=== PATIENT | female | born 1990 | race Two or more races ===

== ENCOUNTER 2024-12-16 08:50 | Observation (INO) | payer MEDICAID ==
[2024-12-16] MEDS ORDERED: PREN-129 OR (09:28)
[2024-12-16] MEDS ORDERED: METF-370 PO (09:28)
--- NOTE | 2024-12-16 09:51 | DVH ---
BIOPHYSICAL PROFILE HISTORY: GDMA2 TECHNIQUE: Multiple real-time grayscale sonographic images through the gravid uterus of the fetus wi th duplex Doppler color flow. FINDINGS: BIOPHYSICAL PROFILE: breathing score: 2 movement score: 2 tone score: 2 Quantitative NING score: 2 Total score: 8 out of 8 Single live fetus in cephalic presentation. heart rate 147 beats per minute. heart rate of 147 beats per minute. Placenta is positioned anteriorly. IMPRESSION: 1. Biophysical profile score: 8 out of 8
--- NOTE | 2024-12-16 10:51 | DVHDS2 ---
Physician Discharge Progress N Final Diagnosis: polyhydramnia,gdm Operations or Procedures: Operations or Procedures nst,sono Condition on Discharge: Good Disposition: Home Discharge Instructions: Diet: Consistent carbohydrate Activity: No Restrictions, As Tolerated Medications: na Follow Up Care: Specialist: 4d Discharge Statement: "Patient was advised to return to the ER or call 911 if any headaches, dizziness, shortness of breath, chest pain, abdominal pain, bleeding, fevers, or worsening of medical condition. Patient was counseled about treatment plan, medications, possible side effects, patientverbalized understanding. All questions were answered to the best of my ability. This discharge took greater then 30 minutes in planning, reviewing doc umentation, counseling the patient, and discussing with other team members." Visit Coding OBGYN Date of Service: Dec 16, 2024 Billing Provider: DONNIE REYES DO MEAT STOCK CLERK Common Visit Codes: [id number] INP/OBS CARE (HIGH) MEAT STOCK CLERK Procedure Codes: 78224-43- NON-STRESS TEST DONNIE REYES DO Dec 16, 2024 10:51
== END 2024-12-16 10:22 | disposition home or self-care (01) ==
LOC: LDRP 08:50
PROVIDERS: ADMIT Obstetrics & Gynecology; ATTEND Obstetrics & Gynecology
DX: O24.419 Gestational diabetes mellitus in pregnancy, unspecified control (principal); O40.3XX0 Polyhydramnios, third trimester, not applicable or unspecified; Z3A.32 32 weeks gestation of pregnancy; Z79.899 Other long term (current) drug therapy
CPT/HCPCS: 59025; 76819; 81002; 82948; 82962; 94760; G0378

== ENCOUNTER 2024-12-21 08:07 | Observation (INO) | payer MEDICAID ==
[~2024-12-21 08:07] MED LIST: METF-370 PO; PREN-129 OR
--- NOTE | 2024-12-21 09:36 | DVH ---
Procedure: US BIOPHYSICAL PROFILE 12/21/2024 08:54 AM Indication: GDMA2 Comparison: US BIOPHYSICAL PROFILE on DOS: 12/16/24 Technique: Sonogram of gravid uterus utilizing grayscale and color techniques. FINDINGS: Single living intrauterine gestation. Presentation: Cephalic Placenta: Anterior heart rate: 155 bpm NING: 11.2 cm, DVP: 4.9 cm Maternal cervix: Not visualized Biophysical Profile: breathing score: 2 movement score: 2 tone: 2 Quantitative NING score: 2 Total score: 8/8 IMPRESSION: 1. Single living as above. 2. Biophysical profile score: 8/8.
--- NOTE | 2024-12-21 17:08 | DVHDS2 ---
Physician Discharge Progress N Final Diagnosis: gdma2,accreta Operations or Procedures: Operations or Procedures nst,sono Other Interventions Other Interventions [facility] Condition on Discharge: Good Disposition: Home Discharge Instructions: Diet: Consistent carbohydrate Activity: No Restrictions, As Tolerated Medications: na Follow Up Care: Specialist: 4d Discharge Statement: "Patient was advised to return to the ER or call 911 if any headaches, dizziness, shortness of breath, chest pain, abdominal pain, bleeding, fevers, or worsening of medical condition. Patient was counseled about treatment plan, medications, possible side effects, patientverbalized understanding. All questions were answered to the best of my ability. This discharge took greater then 30 minutes in planning, reviewing documentation, counseling the patient, and discussing with other team members." Visit Coding OBGYN Date of Service: Dec 21, 2024 Billing Provider: DONNIE REYES DO MORTGAGE CONSULTANT Common Visit Codes: [id number] INP/OBS CARE (HIGH) MORTGAGE CONSULTANT Procedure Codes: 60701-36- NON-STRESS TEST DONNIE REYES DO Dec 21, 2024 17:08
== END 2024-12-21 10:00 | disposition home or self-care (01) ==
LOC: LDRP 08:07
PROVIDERS: ADMIT Obstetrics & Gynecology; ATTEND Obstetrics & Gynecology
DX: O24.419 Gestational diabetes mellitus in pregnancy, unspecified control (principal); O43.213 Placenta accreta, third trimester; Z98.890 Other specified postprocedural states; Z79.899 Other long term (current) drug therapy; Z3A.33 33 weeks gestation of pregnancy
CPT/HCPCS: 59025; 76819; 81002; 82948; 82962; 94760; G0378

== ENCOUNTER 2024-12-25 06:55 | Observation (INO) | payer MEDICAID ==
--- NOTE | 2024-12-25 10:40 | DVH ---
BIOPHYSICAL PROFILE HISTORY: gdma2 TECHNIQUE: Multiple transabdominal real-time grayscale sonographic images through the gravid uterus of the fetus with duplex Doppler color flow and M-mode spectral analysis FINDINGS: BIOPHYSICAL PROFILE: breathing score: 2 movement score: 2 tone score: 2 Quantitative NING score: 2 (NING: 13.2 Cm.) Total score: 8 The cervix not well visualized Single live fetus in cephalic presentation. heart rate 141 beats per minute. Anterior placenta without previa or abruption IMPRESSION: Biophysical profile score: 8
--- NOTE | 2024-12-25 23:01 | DVHDS2 ---
Discharge Summary Date of Admission Dec 25, 2024 at 09:16 Date of Discharge: Dec 25, 2024 Admitting Diagnosis 33 GDM A2 Labs/Diagnostic Data: Laboratory Results Test 12/25/24 09:39 POC Glucose 112 mg/dl (70-106) Brief Hx & Hospital Course: NST US Condition at Discharge: Good Final Diagnosis/Problems List same Discharge Disposition: Home Discharge Instruct/Medications Diet: Consistent carbohydrate Activity: No Restrictions, As Tolerated Follow Up/Referral: As scheduled kick counts labor precautions Discharge Statement: "Patient was advised to return to the ER or call 911 if any headaches, dizziness, shortness of breath, chest pain, abdominal pain, bleeding, fevers, or worsening of medical condition. Patient was counseled about treatment plan, medications, possible side effects, patientverbalized understanding. All questions were answered to the best of my ability. This discharge took greater then 30 minutes in planning, reviewing documentation, counseling the patient, and discussing with other team members." ASSESSMENT ASSESSMENT Assessment Visit Coding OBGYN Date of Service: Dec 25, 2024 Billing Provider: MILAD SOLIMAN DO SOCIAL SERVICES SPECIALIST Common Visit Codes: 46881-VJY/OBS SAME DATE (LOW), 27687-MFZ/OBS SAME DATE (MOD), 70745-FDA/OBS SAME DATE (HIGH) SOCIAL SERVICES SPECIALIST Procedure Codes: 75668-66- NON-STRESS TEST MILAD SOLIMAN DO Dec 25, 2024 23:01
== END 2024-12-25 10:51 | disposition home or self-care (01) ==
LOC: UNDOADMOB 08:35 → LDRP 08:35 → UNDODISOB 10:51
PROVIDERS: ADMIT Obstetrics & Gynecology; ATTEND Obstetrics & Gynecology
DX: O24.419 Gestational diabetes mellitus in pregnancy, unspecified control (principal); Z98.890 Other specified postprocedural states; Z79.899 Other long term (current) drug therapy; Z3A.33 33 weeks gestation of pregnancy
CPT/HCPCS: 59025; 76819; 81002; 82948; 82962; 94760; G0378

== ENCOUNTER 2024-12-29 06:27 | Observation (INO) | payer MEDICAID ==
--- NOTE | 2024-12-31 10:19 | DVH ---
CLINICAL HISTORY: Gestational diabetes. COMPARISON: US BIOPHYSICAL PROFILE on DOS: 12/25/24, US BIOPHYSICAL PROFILE on DOS: 12/21/24, US BIOPHY SICAL PROFILE on DOS: 12/16/24 TECHNIQUE: biophysical profile was performed. Transabdominal sonographic images of the fetus we re obtained. FINDINGS: The fetus is in cephalic position. heart rate measures 137 BPM. Amniotic fluid index measures 8.6 cm. The placenta is anterior in position, without evidence of placenta previa or abrupti on. BPP profile is an overall score of 8/8, with 2/2 points for breathing, with at least one episode of breathing over a 30 second duration during a 30 minute observation, 2/2 points for m ovements, with 3 or more discrete body or limb movements, 2/2 points for tone, with one or more episodes of extremity extension with return to flexion, or opening and closing of hand, and 2/ 2 points for amniotic fluid, with at least 1 pocket of amniotic fluid that measures 2 cm in 2 perpend icular planes. IMPRESSION: BPP score of 8/8.
--- NOTE | 2025-01-01 06:13 | DVHDS2 ---
Discharge Summary Date of Admission December 31, 2024 at 08:33 Date of Discharge: December 31, 2024 Admitting Diagnosis GDM A2 monitoring only Brief Hx & Hospital Course: US NST Consults/Reason for consult none Condition at Discharge: Good Final Diagnosis/Problems List GDM A2 Discharge Disposition: Home Discharge Instruct/Medications Diet: Regular Activity: Light activity Follow Up/Referral: as scheduled Kick counts labor precautions Discharge Statement: "Patient was advised to return to the ER or call 911 if any headaches, dizziness, shortness of breath, chest pain, abdominal pain, bleeding, fevers, or worsening of medical condition. Patient was counseled about treatment plan, medications, possible side effects, patient�verbalized understanding. All questions were answered to the best of my ability. This discharge took greater then 30 minutes in planning, reviewing documentation, counseling the patient, and discussing with other team members." ASSESSMENT ASSESSMENT Assessment Visit Coding OBGYN Date of Service: December 31, 2024 Billing Provider: MILAD SOLIMAN DO SLAB LIFTING SUPERVISOR Common Visit Codes: 22847-WOV/OBS SAME DATE (MOD), 01884-ORF/OBS SAME DATE (HIGH) SLAB LIFTING SUPERVISOR Procedure Codes: 51207-09- NON-STRESS TEST MILAD SOLIMAN DO January 01, 2025 06:13
== END 2024-12-31 10:30 | disposition home or self-care (01) ==
LOC: LDRP 12-31 08:33
PROVIDERS: ADMIT Obstetrics & Gynecology; ATTEND Obstetrics & Gynecology
DX: O24.419 Gestational diabetes mellitus in pregnancy, unspecified control (principal); Z3A.34 34 weeks gestation of pregnancy; Z79.899 Other long term (current) drug therapy; Z98.890 Other specified postprocedural states
CPT/HCPCS: 59025; 76819; 81002; 82948; G0378